=== PATIENT | male | born 1975 | race Caucasian/White ===

== ENCOUNTER 2016-10-05 11:59 | Observation (INO) | payer SELFPAY ==
[2016-10-05] MEDS ORDERED: ASPIRIN 81 MG (BABY) CHEWABLE TABLET PO ONE (12:04)
[2016-10-05] MEDS ORDERED: MORPHINE SULFATE 4 MG/1 ML IVP ONE (12:04)
[2016-10-05] MEDS ORDERED: Sodium Chloride 0.9% 1,000 ML PRIMARY IV ONE (12:04)
[2016-10-05] MEDS ORDERED: ONDANSETRON 4 MG/2 ML VIAL IVP ONE (12:04)
--- NOTE | 2016-10-05 12:11 | EKG ---
[address] [address] Measurements Intervals [place] Rate: 99 P: 36 CO: 145 QRS: -22 QRSD: 113 T: 19 QT: 361 QTc: 417 Interpretive Statements SINUS RHYTHM INDETERMINATE AXIS POSSIBLE RIGHT VENTRICULAR CONDUCTION DELAY ANTEROSEPTAL MYOCARDIAL INFARCTION OF INDETERMINATE AGE No previous ECG available for comparison Electronically Signed On 10-05-16 13:06:25 [facility] by Thomas Simpson [email or web address]
--- NOTE | 2016-10-05 12:11 | PDOC ---
Chest Pain HPI - General Chief Complaint: Chest Pain Stated Complaint: CHEST PAIN Date Seen by Provider: 10/05/16 Time Seen by Provider: 12:06 Source: Patient Exam Limitations: POSITIVE: No limitations Treatment Prior to Arrival: REPORTS: Aspirin (81 mg) Nurse's Notes Reviewed & Considered: Yes - History of Present Illness Initial Comments: Patient comes in today with chest pain. States he is having pain similar to what he experienced during a [place] in March 2014. He's having chest pressure that is substernal radiating into his bilateral and right elbow pressure. He does have some shortness of breath. He is having some mild nausea. No vomiting. He denies any fevers chills or sweats. No Hematuria or dysuria. Patient's symptoms have been intermittent since his heart attack they are becoming more frequent and lasting longer. Strong family history of cardiac problems with mother having an TN young age, grandparents on the paternal side with attacks, his paternal uncle with a heart attack. Body Location Affected: REPORTS: Chest Timing: REPORTS: Abrupt, Getting Worse Duration: Unknown Severity: Moderate Quality: REPORTS: Pressure Radiation: REPORTS: Jaw (R), Jaw (L) Associated Symptoms: REPORTS: Nausea Modifying Factors: improves with: None Reported Similar Symptoms Previously: Yes Recently seen/treated/hospitalized: No Any Prior Injuries Related to Current Complaint?: No - Patient Home Medications Home Medications: Home Medications Aspirin [Child Aspirin] 81 mg PO DAILY 10/05/16 Atenolol 25 mg PO DAILY 10/05/16 Atorvastatin Calcium 20 mg PO DAILY 10/05/16 Lisinopril 2.5 mg PO DAILY 10/05/16 - Patient Allergies Allergies/Adverse Reactions: Allergies Allergy/AdvReac Type Severity Reaction Status Date / Time No Known Allergies Allergy Verified 10/05/16 12:16 ROS - Limitations ROS Limitations: No Limitations Constitution: REPORTS: Denies Symptoms Cardiovascular: REPORTS: Chest Pain Respiratory: REPORTS: Denies Resp Symptoms Neurological: REPORTS: Denies Neuro Symptoms Gastrointestinal: REPORTS: Denies GI Symptoms Endocrine: REPORTS: Denies Symptoms Musculoskeletal: REPORTS: Neck Pain Genitourinary: REPORTS: Denies Symptoms Eyes: REPORTS: Denies Symptoms ENT: REPORTS: Denies Symptoms Lympathic: REPORTS: Denies Lympathic Symptoms Immunologic: POSITIVE: Denies Symptoms Psychiatric: POSITIVE: Anxiety Chest Pain PE - General Appearance General Appearance: REPORTS: Alert, Cooperative, No Evidence of Trauma, Anxious - HEENT HEENT: POSITIVE: Head Inspection Nml, Eyes Inspection Nml, Ears Inspection Nml, Nose Inspection Nml, PERRL, EOMI - Neck Neck: REPORTS: Normal Inspection - Respiratory Respiratory: REPORTS: No Respiratory Distress, Breath Sounds Normal, Chest Non- Tender - Cardiovascular Cardiovascular: REPORTS: Regular Rate and Rhythm, Heart Sounds Normal - Abdomen Abdomen: Soft: (All Quadrants), Normal Bowel Sounds: (All Quadrants), Denies Tenderness: (All Quadrants) - Skin Skin: REPORTS: Intact, Normal For Race, Warm, Dry, No Rash - Extremities Extremity: Non-Tender: (All Extremities), Normal ROM: (All Extremities), Normal Inspection: (All Extremities), Pelvis Stable: (All Extremities) - Neurological / Psychological Neurological: POSITIVE: Affect Apporpriate, Oriented X3 Chest Pain Progress - Results Reviewed by me Xrays/CTs/US Reviewed by me: Yes Discussed with Radiologist: No Lab Results Reviewed: Yes Lab Results:: Laboratory Results 10/05/16 10/05/16 Range/Units 12:05 12:58 WBC 7.20 (4.8-10.8) 10^3/uL RBC 5.03 (4.70-6.10) 10^6/uL Hgb 15.5 (14.0-18.0) g/dL Hct 44.6 (42.0-52.0) % MCV 88.7 (80-90) FL MCH 30.8 (27-31) PG MCHC 34.8 (33-37) g/dL RDW Std Deviation 42.6 (39-50) fL RDW Coeff of Janae 13.2 (11.5-14.5) % Plt Count 210 (140-350) 10*3/uL MPV 11.0 (7.4-12.2) FL Immature Gran % (Auto) 0.1 (0-5) % Neut % (Auto) 68.2 (50-80) % Lymph % (Auto) 24.2 (10-50) % [place] % (Auto) 6.0 (5-15) % Eos % (Auto) 0.7 (0-8) % Baso % (Auto) 0.8 (0-1) % Immature Gran # (Auto) 0.01 10*3/UL Neut # (Auto) 4.91 10*3/UL Lymph # (Auto) 1.74 10*3/uL [place]ergus # (Auto) 0.43 (0.3-0.8) 10*3/UL Eos # (Auto) 0.05 10*3/UL Baso # (Auto) 0.06 10*3/UL WBC Morphology Comment Normal morphology (NORM) Plt Morphology Comment Normal morphology (NORM) RBC Morph Comment Normal morphology (NORM) D-Dimer 0.23 (0.00-0.59) mg/L Sodium 140 (135-145) meq/L Potassium 4.1 (3.8-5.2) meq/L Chloride 103 (98-112) meq/L Carbon Dioxide 21 L (23-33) meq/L Anion Gap 16 (5-20) BUN 17 (7-22) mg/dL Creatinine 1.0 (0.70-1.50) mg/dL Estimated GFR > 60 (>60 ml/min/1.73m(2)) BUN/Creatinine Ratio 17.00 (6-20) Glucose 107 (78-110) mg/dL Calculated Osmolality 291.0 (267-292) mOsm/kg Calcium 9.7 (8.7-10.7) mg/dL Magnesium 1.8 (1.6-2.4) mg/dL Total Bilirubin 0.8 (0.3-1.2) mg/dL AST 22 (21-57) IU/L ALT 41 (21-72) IU/L Alkaline Phosphatase 113 (38-126) IU/L Troponin I 0.015 (< 0.040) ng/mL Total Protein 7.9 (6.1-8.0) g/dL Albumin 4.8 (3.5-4.8) g/dL Globulin 3.0 (2.50-4.10) g/dL Albumin/Globulin Ratio 1.60 (1.3-2.0) mg/g TSH Pending Free T4 1.30 (0.93-1.71) ng/dL EKG Interpretation:: POSITIVE: Normal Sinus Rhythm, Normal Rate, Normal Intervals - Patient's Progress Pain Medication Addressed: POSITIVE: Yes Re-Examine Time: 12:42 Status: POSITIVE: Improved MDM / ED Course: Patient received sublingual nitroglycerin, and oral aspirin. His chest pain resolved with a single nitroglycerin. He declined the morphine and Zofran. Findings: CBC is unremarkable, troponin is normal, EKG shows a sinus rhythm,, metabolic panel is unremarkable, magnesium is normal, d-dimer is normal. Assessment: Chest pain rule out myocardial infarction. Plan: Admission for rule out of TN. Quality Measure Initiative: CP/AMI: POSITIVE: EKG, ASA, ACS Risk Quality Measure Initiative: CAP: POSITIVE: CXR or CT - Consult Consult (If Yes, Name of Consulting MD & Time Called): Yes (Dr Vines) Consulting MD will see pt:: [place] [facility] [place] Counseled: POSITIVE: Patient, RE: Radiology Results, RE: DX Patient Care Time - Estimated PCT Patient Care Time (In Minutes): 30 Vital Signs - Recent Vital Signs Vital Signs: Vital Signs (Last 8 hours) Temp Pulse Pulse Resp BP Pulse Ox 10/05/16 13:29 96.8 F 71 14 118/83 92 10/05/16 12:03 99 10/05/16 11:59 96.8 F 110 H 19 163/107 96 - VS Reviewed Vital Signs Reviewed: Yes Discharge Clinical Impression: Chest pain Discharge Disposition: Admit to Observation Condition: Stable Follow Up With: JUNI JOHNSON [Primary Care Provider] - Date Decision to Admit to Inpatient: 10/05/16 Time Decision to Admit to Inpatient: 12:43
[2016-10-05] MEDS ORDERED: NITROGLYCERIN 0.4 MG SL TAB (BOTTLE OF 3) SL ONE (12:31)
--- NOTE | 2016-10-05 13:00 | DI ---
AP CHEST X-RAY, 10/05/2016 12:04 PM : Clinical History: Chest pain Previous Exam: None at this facility. There is no acute soft tissue or bony abnormality. Heart size is normal. Lungs are clear. Mediastinal structures are normal. There are no pulmonary nodules. Overlying EKG leads are seen. Reading: Normal chest x-ray.
[2016-10-05 13:17] LABS: BASOPHILS # (AUTO) 0.06 10*3/UL; BASOPHILS % (AUTO) 0.8 % (0-1); EOSINOPHILS % (AUTO) 0.7 % (0-8); HEMATOCRIT 44.6 % (42.0-52.0); HEMOGLOBIN 15.5 g/dL (14.0-18.0); IMM GRAN % (AUTO) 0.1 % (0-5); IMM GRAN# (AUTO) 0.01 10*3/UL; LYMPHOCYTES # (AUTO) 1.74 10*3/uL; LYMPHOCYTES % (AUTO) 24.2 % (10-50); MEAN CORPUSCULAR HEMOGLOBIN 30.8 PG (27-31); MEAN CORPUSCULAR HGB CONC 34.8 g/dL (33-37); MONOCYTES # (AUTO) 0.43 10*3/UL (0.3-0.8); NEUTROPHILS # (AUTO) 4.91 10*3/UL; NEUTROPHILS % (AUTO) 68.2 % (50-80); RDW COEFFICIENT OF VARIATION 13.2 % (11.5-14.5); RED BLOOD COUNT 5.03 10^6/uL (4.70-6.10)
[2016-10-05 13:19] LABS: PLATELET MORPHOLOGY COMMENT NORMAL MORPHOLOGY (NORM)
[2016-10-05 13:24] LABS: ASPARTATE AMINO TRANSFERASE 22 IU/L (21-57); BILIRUBIN,TOTAL 0.8 mg/dL (0.3-1.2); BLOOD UREA NITROGEN 17 mg/dL (7-22); CALCIUM 9.7 mg/dL (8.7-10.7); CHLORIDE 103 meq/L (98-112); EST GLOMERULAR FILTRATION > 60 (>60 ml/min/1.73m(2)); GLUCOSE 107 mg/dL (78-110); MAGNESIUM 1.8 mg/dL (1.6-2.4); POTASSIUM 4.1 meq/L (3.8-5.2); SODIUM 140 meq/L (135-145); TOTAL PROTEIN 7.9 g/dL (6.1-8.0)
[2016-10-05 13:38] LABS: FREE T4 (FREE THYROXINE) 1.3 ng/dL (0.93-1.71)
--- NOTE | 2016-10-05 13:49 | PDOC ---
History and Physical - History of Present Illness History of Present Illness: Is a very nice 41-year-old gentleman with past medical history of myocardial infarction in March 2014. Comes to the ER with chest pressure radiating to his right arm accompanied by some shortness of breath and some mild nausea but no vomiting there is also radiation to neck or jaw patient states that his chest pains or being in the intermittent since he had his MN but they have increased in frequency lately he also has a strong family history with a his mom having an MN myocardial infarction at an early age also grandparents on the paternal side and a paternal uncle with MIs. He is now chest pain-free with a sublingual nitroglycerin Patient will be admitted the chest pain rule out most likely will have a stress test done and initial troponins are negative Past Medical History Medical History: MN March 2014 Tobacco Use: Never Smoker Substance Use Type: None Alcohol Use: None Medication / Allergies Home Medications: Home Medications Medication Instructions Recorded Confirmed Type Aspirin [Child Aspirin] 81 mg PO DAILY 10/05/16 10/05/16 History Atenolol 25 mg PO DAILY 10/05/16 10/05/16 History Atorvastatin Calcium 20 mg PO DAILY 10/05/16 10/05/16 History Lisinopril 2.5 mg PO DAILY 10/05/16 10/05/16 History Allergies/Adverse Reactions: Allergies Allergy/AdvReac Type Severity Reaction Status Date / Time No Known Allergies Allergy Verified 10/05/16 12:16 Review of Systems - Review of Systems All Systems: Reviewed & No Additional Complaints Except as Stated - Respiratory Respiratory: DENIES: Negative System Review, Cough, Sputum, Dyspnea At Rest, Dyspnea with Exertion, Pleuritic Pain, Hemoptysis, Wheezing, Other, See HPI - Cardiovascular Cardiovascular: REPORTS: Chest Pain - Gastrointestinal Gastrointestinal / Abdominal: DENIES: Negative System Review, Nausea, Vomiting, Diarrhea, Constipation, Abdominal Pain, Bloody Stool, Poor Appetite, Heartburn, Regurgitation, Bloating, Lactose Intolerance, Melena, Bright Red Blood Per Rectum, Other, See HPI - Neurological Neurologic: DENIES: Negative System Review, Headache, Numbness/Paresthesia, Tremors, Weakness, Seizures, Head Trauma, LOC, Dizziness, Confusion, Memory Loss , Difficulty Walking, Incoordination, Other, See HPI Exam - Vitals Vital Signs: Vital Signs Temperature 96.8 F Temperature Source Temporal Artery Scan Pulse Rate [Telemetry] 71 Pulse Rate 99 Respiratory Rate 14 Blood Pressure [Right Arm] 118/83 Pulse Ox 92 Oxygen Delivery Method Room Air Height 5 ft 10 in Weight 104.326 kg - General General Appearance: POSITIVE: No Acute Distress, Cooperative - Head Head Exam: POSITIVE: Normal Inspection - Eye Eye Exam: POSITIVE: Normal Appearance - Neck Neck Exam: POSITIVE: Normal Inspection, No Tenderness - Respiratory Respiratory Exam: POSITIVE: Clear to Auscultation - Bilaterally, Breathing Non Labored, Normal To Percussion, Normal to Percussion and Palpation - Cardiovascular Cardiovascular Exam: POSITIVE: RRR, No Murmur, No Clicks - GI/Abdominal GI/Abdominal Exam: POSITIVE: Normal Bowel Sounds, Non Tender, Non Distended, Soft - Extremities Extremities Exam: POSITIVE: Normal Capillary Refill, No Clubbing Present, No Edema Present - Neurological Neurological Exam: POSITIVE: Alert, Oriented x 3, Reflexes Normal, CN II-XII Intact - Psychiatric Psychiatric Exam: POSITIVE: Normal Affect Results - Labs CBC and BMP: 10/05/16 12:05 10/05/16 12:05 Labs - Last 24 Hours: Laboratory Results 10/05/16 10/05/16 Range/Units 12:05 12:58 WBC 7.20 (4.8-10.8) 10^3/uL RBC 5.03 (4.70-6.10) 10^6/uL Hgb 15.5 (14.0-18.0) g/dL Hct 44.6 (42.0-52.0) % MCV 88.7 (80-90) FL MCH 30.8 (27-31) PG MCHC 34.8 (33-37) g/dL RDW Std Deviation 42.6 (39-50) fL RDW Coeff of Janae 13.2 (11.5-14.5) % Plt Count 210 (140-350) 10*3/uL MPV 11.0 (7.4-12.2) FL Immature Gran % (Auto) 0.1 (0-5) % Neut % (Auto) 68.2 (50-80) % Lymph % (Auto) 24.2 (10-50) % [place] % (Auto) 6.0 (5-15) % Eos % (Auto) 0.7 (0-8) % Baso % (Auto) 0.8 (0-1) % Immature Gran # (Auto) 0.01 10*3/UL Neut # (Auto) 4.91 10*3/UL Lymph # (Auto) 1.74 10*3/uL [place] # (Auto) 0.43 (0.3-0.8) 10*3/UL Eos # (Auto) 0.05 10*3/UL Baso # (Auto) 0.06 10*3/UL WBC Morphology Comment Normal morphology (NORM) Plt Morphology Comment Normal morphology (NORM) RBC Morph Comment Normal morphology (NORM) D-Dimer 0.23 (0.00-0.59) mg/L Sodium 140 (135-145) meq/L Potassium 4.1 (3.8-5.2) meq/L Chloride 103 (98-112) meq/L Carbon Dioxide 21 L (23-33) meq/L Anion Gap 16 (5-20) BUN 17 (7-22) mg/dL Creatinine 1.0 (0.70-1.50) mg/dL Estimated GFR > 60 (>60 ml/min/1.73m(2)) BUN/Creatinine Ratio 17.00 (6-20) Glucose 107 (78-110) mg/dL Calculated Osmolality 291.0 (267-292) mOsm/kg Calcium 9.7 (8.7-10.7) mg/dL Magnesium 1.8 (1.6-2.4) mg/dL Total Bilirubin 0.8 (0.3-1.2) mg/dL AST 22 (21-57) IU/L ALT 41 (21-72) IU/L Alkaline Phosphatase 113 (38-126) IU/L Troponin I 0.015 (< 0.040) ng/mL Total Protein 7.9 (6.1-8.0) g/dL Albumin 4.8 (3.5-4.8) g/dL Globulin 3.0 (2.50-4.10) g/dL Albumin/Globulin Ratio 1.60 (1.3-2.0) mg/g TSH Pending Free T4 1.30 (0.93-1.71) ng/dL Assessment and Plan - Patient Problems (1) Chest pain Current Visit: Yes Status: Acute Comment: Admit the patient continue usual medication statin beta freedom aspirin ryan troponins every 6 hours 3 initial troponin was negative I will order chemical stress test. last previous test was done in 2013 and is been having intermittent chest pains since then (2) Coronary artery disease Current Visit: Yes Status: Acute
[2016-10-05] MEDS ORDERED: NORMAL SALINE 10 ML SYRINGE FLUSH IVP PRN (15:12)
[2016-10-05] MEDS ORDERED: NITROGLYCERIN 0.4 MG SL TAB (BOTTLE OF 3) SL PRN (15:12)
[2016-10-05] MEDS ORDERED: MORPHINE SULFATE 2 MG/1 ML IV PRN (15:12)
[2016-10-05] MEDS: HEPARIN 5000 UNIT/1 ML SUBCUT SCH ×2 (16:51→23:51)
[2016-10-05 19:33] LABS: TROPONIN I 0.014 ng/mL (< 0.040)
[2016-10-05 19:51] LABS: CKMB RATIO 0.48 %; CREATINE KINASE MB 1.55 NG/DL (0.00-5.00)
[2016-10-06 01:10] LABS: ASPARTATE AMINO TRANSFERASE 16 IU/L (21-57); BILIRUBIN,TOTAL 0.9 mg/dL (0.3-1.2); BLOOD UREA NITROGEN 17 mg/dL (7-22); BUN/CREATININE RATIO 18.88 (6-20); CALCIUM 8.9 mg/dL (8.7-10.7); CHLORIDE 107 meq/L (98-112); CREATININE 0.9 mg/dL (0.70-1.50); EST GLOMERULAR FILTRATION > 60 (>60 ml/min/1.73m(2)); GLUCOSE 94 mg/dL (78-110); HDL CHOLESTEROL 41 mg/dL (40-150); POTASSIUM 4.3 meq/L (3.8-5.2); SODIUM 138 meq/L (135-145); TOTAL PROTEIN 6.5 g/dL (6.1-8.0); TRIGLYCERIDES 202 mg/dL (44-200)
[2016-10-06 07:32] VITALS: RESP 20
[2016-10-06] MEDS: HEPARIN 5000 UNIT/1 ML SUBCUT SCH (07:42)
[2016-10-06] MEDS ORDERED: LISINOPRIL 5 MG TABLET PO SCH (09:00)
[2016-10-06] MEDS ORDERED: ASPIRIN 81 MG (BABY) CHEWABLE TABLET PO SCH (09:00)
[2016-10-06] MEDS ORDERED: ATENOLOL 25 MG TABLET PO SCH (09:00)
--- NOTE | 2016-10-06 09:55 | PDOC(PROG) ---
Date and Time of Service: 10/06/2016 9:52 AM Interval History: Subjective Patient came into the hospital with history of pain in the chest with pain in the right arm, he said this pain been going on for a while probably more than a year but he got concerned yesterday and that's why he came into the hospital. He had a history of a heart attack in 2013 and ended up with 2 stents done in [place]. He said a year after that the he ended up also there because of chest pain had a stress test which was negative. He continued to have pain in the chest 2-3 times a day but this time he decided to come to the hospital because he was concerned. He said he is stressed at his job. He rated his pain maybe 6 out of 10 yesterday by the time he came into the ER he was given nitroglycerin and that resolved his pain, today is denying any symptoms. Objective : Data - Labs CBC and BMP: 10/05/16 12:05 10/06/16 00:54 Labs - Last 24 Hours: Laboratory Results 10/05/16 10/06/16 Range/Units 19:02 00:54 Sodium 138 (135-145) meq/L Potassium 4.3 (3.8-5.2) meq/L Chloride 107 (98-112) meq/L Carbon Dioxide 22 L (23-33) meq/L Anion Gap 9 (5-20) BUN 17 (7-22) mg/dL Creatinine 0.9 (0.70-1.50) mg/dL Estimated GFR > 60 (>60 ml/min/1.73m(2)) BUN/Creatinine Ratio 18.88 (6-20) Glucose 94 (78-110) mg/dL Calculated Osmolality 287.0 (267-292) mOsm/kg Calcium 8.9 (8.7-10.7) mg/dL Total Bilirubin 0.9 (0.3-1.2) mg/dL AST 16 L (21-57) IU/L ALT 38 (21-72) IU/L Alkaline Phosphatase 85 (38-126) IU/L Total Creatine Kinase 321 H (55-170) IU/L CK-MB (CK-2) 1.55 (0.00-5.00) NG/DL CK-MB (CK-2) Ratio 0.48 % Troponin I 0.014 < 0.012 (< 0.040) ng/mL Total Protein 6.5 (6.1-8.0) g/dL Albumin 3.9 (3.5-4.8) g/dL Globulin 2.7 (2.50-4.10) g/dL Albumin/Globulin Ratio 1.40 (1.3-2.0) mg/g Triglycerides 202 H (44-200) mg/dL Cholesterol 226 H (120-200) mg/dL LDL Cholesterol, Calc 144.600 mg/dL VLDL Cholesterol 40 (0-40) mg/dL HDL Cholesterol 41 (40-150) mg/dL Cholesterol/HDL Ratio 5.51 H (0-4.0) RATIO Objective : Exam - General General Appearance: No Acute Distress, Cooperative - Head Head Exam: Normal Inspection - Eye Eye Exam: Normal Appearance - ENT ENT Exam: Normal Exam - Neck Neck Exam: Normal Inspection - Respiratory Respiratory Exam: Clear to Auscultation - Bilaterally - Cardiovascular Cardiovascular Exam: RRR - GI/Abdominal GI/Abdominal Exam: Normal Bowel Sounds, Non Tender, Non Distended, Soft - Rectal Rectal Exam: Deferred - External Exam: Deferred - Extremities Extremities Exam: Normal Inspection - Back Back Exam: Normal Inspection - Neurological Neurological Exam: Alert, Oriented x 3, CN II-XII Intact, Speech Intact / Clear , Moves All Extremities Equally - Psychiatric Psychiatric Exam: Normal Affect - Integumentary Integumentary Exam: Normal Color Assessment and Plan - Patient Problems (1) Chest pain Current Visit: Yes Status: Acute Comment: His enzymes remain negative, he did have the stress test today we are waiting for nuclear imaging results. (2) Coronary artery disease Current Visit: Yes Status: Acute Comment: Continue his previous medications
--- NOTE | 2016-10-06 10:06 | STRESSTEST ---
[facility] [place] Interpretive Statements Patient had Lexiscan stress test per protocol, baseline BP was 130/80, heart rate was 82, EKG sinus rhythm with incomplete RBBB, old anterior NE, patient did have chest pain post injection but resolved quickly. EKG showed sinus tachycardia but no new EKG changes., Conclusion: The EKG part of Lexiscan stress did not show new changes. await nuclear scan results. [email or web address]
--- NOTE | 2016-10-06 12:32 | DI ---
2 DAY LEXISCAN STRESS & REST MYOCARDIAL PERFUSION SCANS, 10/05/2016 3:12 PM : Clinical History: Chest pain. Previous Exam: None at this facility. The patient was stressed by Dr. Johnson The standard Lexiscan protocol was used. Please see the Doctor's report. At the designated time, 32.9 mCi of 99Tc-sestimibi was injected IV. Stress gated tomograms were acquired within one hour of the i njection. For the resting scans, 33.2 mCi was injected IV and resting gated tomograms were acquired in similar fashion. Stress scans were performed on October 06, 2016; the resting scans were performed on October 05. Quantitative and qualitative analyses were performed. Quantitative analysis was performed with the [facility] [id number] protocols. Very low dose limited CT scans of the chest are o btained through the level of the heart for attenuation correction of the gated stress and rest cardia c SPECT data. Non-attenuated and attenuated scans were processed for review, and the attenuated scans were used for final interpretation of this study. Review of the raw data images and quality worker files indicate that these series of examinations ar e of good quality. There was some motion artifact noted on the source images. Stress and rest left ventricular chamber sizes are slightly dilated. Stress and rest LVEF are 54 % and 63 %, respectively. There is a large predominantly fixed area within the anterior septal apex extends from the apex to t he base along the superior septal wall. There is some mild reversibility of the mid slices of the inferior septal wall. There is diffuse hypokinesis. Transient ischemic dilatation ratio is 1.06, with a normal range up to 1.22 for patients stresse d with the Grabiel protocol and up to 1.33 for patients stressed with the Lexiscan protocol. The very low dose CT scans through the level of the heart demonstrate multiple coronary artery calcif ications with a stent in the left anterior descending artery. Some subsegmental atelectasis is noted in the lung bases. There is no adenopathy or evidence of lung nodules. Reading: Predominantly fixed defect involving the anterior septal wall from base to apex. There is some mild r eversibility a medium-sized area of the mid slices of the inferior septal wall. And diffuse hypokinesis and ejection fractions at the low end of normal.
--- NOTE | 2016-10-06 13:15 | DCSUMMARY ---
Hospitalization Summary Admit Date: 10/05/16 Discharge Date: 10/06/16 Hospital Course: Discharge summary 1. Episode of chest pain resolved, enzymes negative 2. Predominantly fixed defect involving the anterior septal wall from base to apex. There is some mild reversibility a medium-size area of the mid slices of the inferior septal wall 3. Diffuse hypokinesis on nuclear scan 4. History of coronary artery disease Hospital course This is a 41 years old male with medical history significant for history of coronary artery disease with previous [place] in 2013 who came into the ER with chest pressure that radiated to his right arm accompanied by some shortness of breath and some mild nausea. He did report history of intermittent chest pain sometimes frequent going on for a while but increased in frequency lately and because he was concerned about his chest pain he came in to the ER yesterday and was admitted, admitted by Dr. Vines please see his note. Patient when he came into the ER was given nitroglycerin and that's helped his pain. His enzymes remain negative EKG showed the previous the [place] in the anterior leads. I saw him the next day he was denying symptoms we did a lexiscan stress test for him, stress test showed predominantly mixed defect involving the anterior septal wall from base to apex. There is some mild reversibility in a medium- size area of the mid slices of the inferior septal wall. There is diffuse hypokinesis on nuclear scan. Because of the finding I did speak with Dr. Jim and he suggested transfer the patient, the patient agreed for transfer patient will be transferred at one point today Laboratory Results 10/05/16 10/05/16 10/05/16 Range/Units 12:05 12:58 19:02 WBC 7.20 (4.8-10.8) 10^3/uL RBC 5.03 (4.70-6.10) 10^6/uL Hgb 15.5 (14.0-18.0) g/dL Hct 44.6 (42.0-52.0) % MCV 88.7 (80-90) FL MCH 30.8 (27-31) PG MCHC 34.8 (33-37) g/dL RDW Std Deviation 42.6 (39-50) fL RDW Coeff of Janae 13.2 (11.5-14.5) % Plt Count 210 (140-350) 10*3/uL MPV 11.0 (7.4-12.2) FL Immature Gran % (Auto) 0.1 (0-5) % Neut % (Auto) 68.2 (50-80) % Lymph % (Auto) 24.2 (10-50) % Robertson % (Auto) 6.0 (5-15) % Eos % (Auto) 0.7 (0-8) % Baso % (Auto) 0.8 (0-1) % Immature Gran # (Auto) 0.01 10*3/UL Neut # (Auto) 4.91 10*3/UL Lymph # (Auto) 1.74 10*3/uL Robertson # (Auto) 0.43 (0.3-0.8) 10*3/UL Eos # (Auto) 0.05 10*3/UL Baso # (Auto) 0.06 10*3/UL WBC Morphology Comment Normal morphology (NORM) Plt Morphology Comment Normal morphology (NORM) RBC Morph Comment Normal morphology (NORM) D-Dimer 0.23 (0.00-0.59) mg/L Sodium 140 (135-145) meq/L Potassium 4.1 (3.8-5.2) meq/L Chloride 103 (98-112) meq/L Carbon Dioxide 21 L (23-33) meq/L Anion Gap 16 (5-20) BUN 17 (7-22) mg/dL Creatinine 1.0 (0.70-1.50) mg/dL Estimated GFR > 60 (>60 ml/min/1.73m(2)) BUN/Creatinine Ratio 17.00 (6-20) Glucose 107 (78-110) mg/dL Calculated Osmolality 291.0 (267-292) mOsm/kg Calcium 9.7 (8.7-10.7) mg/dL Magnesium 1.8 (1.6-2.4) mg/dL Total Bilirubin 0.8 (0.3-1.2) mg/dL AST 22 (21-57) IU/L ALT 41 (21-72) IU/L Alkaline Phosphatase 113 (38-126) IU/L Total Creatine Kinase 321 H (55-170) IU/L CK-MB (CK-2) 1.55 (0.00-5.00) NG/DL CK-MB (CK-2) Ratio 0.48 % Troponin I 0.015 0.014 (< 0.040) ng/mL Total Protein 7.9 (6.1-8.0) g/dL Albumin 4.8 (3.5-4.8) g/dL Globulin 3.0 (2.50-4.10) g/dL Albumin/Globulin Ratio 1.60 (1.3-2.0) mg/g Triglycerides (44-200) mg/dL Cholesterol (120-200) mg/dL LDL Cholesterol, Calc mg/dL VLDL Cholesterol (0-40) mg/dL HDL Cholesterol (40-150) mg/dL Cholesterol/HDL Ratio (0-4.0) RATIO TSH 0.836 (0.2700-4.2000) uIU/mL Free T4 1.30 (0.93-1.71) ng/dL 10/06/16 Range/Units 00:54 WBC (4.8-10.8) 10^3/uL RBC (4.70-6.10) 10^6/uL Hgb (14.0-18.0) g/dL Hct (42.0-52.0) % MCV (80-90) FL MCH (27-31) PG MCHC (33-37) g/dL RDW Std Deviation (39-50) fL RDW Coeff of Janae (11.5-14.5) % Plt Count (140-350) 10*3/uL MPV (7.4-12.2) FL Immature Gran % (Auto) (0-5) % Neut % (Auto) (50-80) % Lymph % (Auto) (10-50) % Robertson % (Auto) (5-15) % Eos % (Auto) (0-8) % Baso % (Auto) (0-1) % Immature Gran # (Auto) 10*3/UL Neut # (Auto) 10*3/UL Lymph # (Auto) 10*3/uL Robertson # (Auto) (0.3-0.8) 10*3/UL Eos # (Auto) 10*3/UL Baso # (Auto) 10*3/UL WBC Morphology Comment (NORM) Plt Morphology Comment (NORM) RBC Morph Comment (NORM) D-Dimer (0.00-0.59) mg/L Sodium 138 (135-145) meq/L Potassium 4.3 (3.8-5.2) meq/L Chloride 107 (98-112) meq/L Carbon Dioxide 22 L (23-33) meq/L Anion Gap 9 (5-20) BUN 17 (7-22) mg/dL Creatinine 0.9 (0.70-1.50) mg/dL Estimated GFR > 60 (>60 ml/min/1.73m(2)) BUN/Creatinine Ratio 18.88 (6-20) Glucose 94 (78-110) mg/dL Calculated Osmolality 287.0 (267-292) mOsm/kg Calcium 8.9 (8.7-10.7) mg/dL Magnesium (1.6-2.4) mg/dL Total Bilirubin 0.9 (0.3-1.2) mg/dL AST 16 L (21-57) IU/L ALT 38 (21-72) IU/L Alkaline Phosphatase 85 (38-126) IU/L Total Creatine Kinase (55-170) IU/L CK-MB (CK-2) (0.00-5.00) NG/DL CK-MB (CK-2) Ratio % Troponin I < 0.012 (< 0.040) ng/mL Total Protein 6.5 (6.1-8.0) g/dL Albumin 3.9 (3.5-4.8) g/dL Globulin 2.7 (2.50-4.10) g/dL Albumin/Globulin Ratio 1.40 (1.3-2.0) mg/g Triglycerides 202 H (44-200) mg/dL Cholesterol 226 H (120-200) mg/dL LDL Cholesterol, Calc 144.600 mg/dL VLDL Cholesterol 40 (0-40) mg/dL HDL Cholesterol 41 (40-150) mg/dL Cholesterol/HDL Ratio 5.51 H (0-4.0) RATIO TSH (0.2700-4.2000) uIU/mL Free T4 (0.93-1.71) ng/dL Discharge instruction Diet regular Activity as started Medications Home Medications Medication Instructions Recorded Confirmed Type Aspirin [Child Aspirin] 81 mg PO DAILY 10/05/16 10/05/16 History Atenolol 25 mg PO DAILY 10/05/16 10/05/16 History Atorvastatin Calcium 20 mg PO DAILY 10/05/16 10/05/16 History Lisinopril 2.5 mg PO DAILY 10/05/16 10/05/16 History Follow-up per Dr. Jim postdischarge Condition at transfer was stable for transfer Exam - Vitals Vital Signs: Vital Signs Temperature 96.8 F Temperature Source Temporal Artery Scan Pulse Rate [Apical] 74 Pulse Rate [Pulse Oximeter] 64 Pulse Rate [Telemetry] 72 Pulse Rate 57 Respiratory Rate 20 Blood Pressure [Left Arm] 132/77 Blood Pressure [Right Arm] 121/74 Pulse Ox 94 Oxygen Delivery Method Room Air Height 5 ft 10 in Weight 224 lb 6.4 oz Patient Problems - Patient Problem List (1) Chest pain Status: Acute (2) Coronary artery disease Status: Acute
[2016-10-06 13:48] VITALS: TEMP 97.8
[2016-10-06] MEDS ORDERED: ATORVASTATIN 20 MG TABLET PO SCH (21:00)
== END 2016-10-06 14:19 | disposition short-term general hospital (02) ==
LOC: ER 11:59 → MED/SURG 13:42
PROVIDERS: ADMIT Internal Medicine; ATTEND Internal Medicine
DX: R07.9 Chest pain, unspecified (principal); I25.10 Atherosclerotic heart disease of native coronary artery without angina pectoris
CPT/HCPCS: 36415 ×2; 71010; 78452; 80053 ×2; 80061; 82550; 82553; 83735; 84439; 84443; 84484 ×2; 85025; 85379; 93005; 93010; 93016; 93017; 93018; 94761 ×2; 99284 ×2; A9500; J2785; J1644; J2270; J2405; J7030